=== PATIENT | male | born 1960 | race Caucasian/White ===

== ENCOUNTER → 2016-07-28 | Outpatient (REF) ==
[~2016-07-28] MED LIST: ASPIRIN E.C. 8181 MG PO; EFFIENT10 MG PO; LIPITOR 40MG TA40 MG PO; LIPITOR20 MG PO; LOPRESSOR 225 MG/TAB PO; PRINIVIL20 MG PO; PROTONIX 40MG T40 MG PO; ZYLOPRIM 300MG300 MG PO
== END ==
LOC: WSOH 12:49
DX: Z11.1 Encounter for screening for respiratory tuberculosis (principal)

== ENCOUNTER → 2016-08-06 | Outpatient (REF) | LOC: WSOH 08:28 | DX: Z00.00 Encounter for general adult medical examination without abnormal findings (principal) ==